=== PATIENT | male | born 1965 | race African-American/Black ===

== ENCOUNTER → 2019-01-30 | Outpatient (CLI) | payer BC ==
[~2019-01-30] VITALS: Ht 175.3 cm; Wt 103.0 kg
[~2019-01-30] MED LIST: CRESTOR20 MG PO; IMDUR 30 MG TAB30 M1 PO; TOPROL XL25 MG PO
[2019-01-30 10:46] VITALS: BP 134/89
--- NOTE | 2019-01-31 12:51 | EKG ---
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
--- NOTE | 2019-02-07 10:47 | CATHLAB ---
[facility] [address] [place] [address] INVASIVE PROCEDURE REPORT Name: ANNMARIE WARREN Room #: REG ROLAND Bailey#: [id number] Admission: 01/30/19 Attend Phys: Lee Kam Discharge: Date of : 67 Report #: [id number] THIS REPORT FOR: //name// APPROVED REPORT Study performed: 01/30/2019 11:33:52 Patient Details Patient Status: Out-Patient Room #: The patient is a 53 year-old male Event Personnel Lee Cash Christian Science Practitioner, Maggy Sutton RN, Jessica Ruiz RTR Scrub, Carlos Crystal RTR Scrub, Sathish Bronson Monitor Procedures Performed Left Heart Cath w/or w/o Coronaries [id number] [facility], supervision of conscious sedation Indication Positive stress test, Chest pain Procedure Narrative The Right Groin^ was infiltrated with 1% Lidocaine subcutaneous anesthesia. A PINNACLE 4FR Sheath #[id number] sheath was inserted into the RFA^. Coronary angiography was performed using coronary diagnostic catheters. The right coronary system was accessed and visualized with a JR4 catheter. The left coronary system was accessed and visualized with a JL4 catheter. The left ventricle was accessed and visualized with a PIGTAIL catheter. Left ventricular/Aortic Valve gradient assessed via catheter pullback. The patient tolerated the procedure well and there were no complications associated with the procedure. There was no hematoma. Intraoperative Conscious Sedation Sedation start time: 11.53 Case end Time: 12.25 Versed 2 mg Fluoro Time: 7.00 minutes Dose: DAP 9605.00 cGycm2 1634 mGy Contrast Type and Amount: Omnipaque 70 ml Coronary Angiography [facility] [address] [place] [address] INVASIVE PROCEDURE REPORT Name: ANNMARIE WARREN Room #: REG CL [facility]#: [id number] Admission: 01/30/19 Attend Phys: Lee Kam Discharge: Date of : 67 Report #: [id number] The patient's coronary anatomy is right dominant. Diagnostic Cath Left Main Normal origin and moderate to large caliber bifurcates left anterior descending left circumflex free of high-grade disease LAD Moderate caliber type III vessel which proceeds in the AV groove giving rise to diagonal and septal branches. The first diagonal branch has a high-grade proximal lesion that is subtotally occluded. The vessel appears to be less than half a millimeter in diameter. The LAD proper then continues on tapering towards the apex and in the midportion of the LAD there is a eccentric 70+ percent stenosis. Beyond this in the distal third there are 2 sequential lesions that appear to be 60-70 and 70-80 respectively. There is no apparent reduced flow. Diagonal 1 Very small-caliber vessel which is subtotally occluded in the proximal third and then continues on to his anterolateral wall with diffuse high-grade disease Circumflex Moderate caliber vessel which initially gives rise to a marginal branch that has a 75% in-stent restenosis. The vessel then continues on with diffuse disease in the distal have to third of the vessel with subtotal occlusions and high-grade lesions noted. The cervical investing continues on his rise to a second small insignificant caliber marginal branch which is subtotally occluded in the proximal portion. The circumflex then continues posteriorly in the AV groove terminating small possible branches prior to subtotal lesions of these branches. OM1 Moderate to small caliber vessel with in-stent restenosis of greater than 75%. It then continues on with diffuse disease. Right Coronary Arch caliber dominant vessel which proceeds in the AV groove. He has mild to moderate irregularities in its proximal and midportion. Prior to the crux of the heart there is segment of sequential 30-50% lesions in the PDA arises it rapidly tapers from a proximal ectatic region to a small R PDA Large caliber vessel proximally large ectatic vessel then rapidly tapers to less than have him millimeter in diameter with moderate diffuse disease Left Ventriculography Left Ventriculography was not performed. Hemodynamics The aortic pressure is 127/85 mmHg with a mean of 103 mmHg. The left ventricular pressure is 134/8 mmHg with a mean of mmHg. The left ventricular end diastolic pressure is 23 mmHg. [facility] [address] [place] [address] INVASIVE PROCEDURE REPORT Name: ANNMARIE WARREN Room #: REG ROLAND Bailey#: [id number] Admission: 01/30/19 Attend Phys: Lee Kam Discharge: Date of : 67 Report #: [id number] Conclusion 1. Coronary artery disease multivessel diffuse moderate to high-grade 2. Abnormal hemodynamics elevated left ventricular end-diastolic pressures Recommendations Cardiac Risk Reduction Program Aggressive Medical Therapy 1. With discuss with patient the extent of his diffuse disease and the inability to completely revascularize all of his lesions. Options of selective percutaneous revascularization in addition to medical management will be discussed. In view of the mid and distal disease that's moderate and high-grade surgical revascularization likely not to produce adequate long-term benefits but we'll have surgery evaluate and obtain their opinion. <ELECTRONICALLY SIGNED> By: Lee Cash MD 02/07/19 1047 1047 1047 Lee Cash MD /INF
== END | disposition home or self-care (01) ==
LOC: CAT 10:11
DX: R07.9 Chest pain, unspecified (principal); I25.10 Atherosclerotic heart disease of native coronary artery without angina pectoris; I50.1 Left ventricular failure, unspecified; E78.5 Hyperlipidemia, unspecified; I25.2 Old myocardial infarction; Z98.890 Other specified postprocedural states; Z79.899 Other long term (current) drug therapy

== ENCOUNTER 2019-04-12 21:45 | Inpatient (IN) | payer BC ==
[~2019-04-12] VITALS: Ht 175.3 cm; Wt 103.9 kg
[2019-04-12 21:49] VITALS: BP 158/91
[2019-04-12 22:06] LABS: ABSOLUTE NEUTROPHILS 3.5 thou/uL (1.4-8.2); BASOPHILS 0.6 % (0.0-2.0); EOSINOPHILS 1.4 % (0.0-3.0); HEMATOCRIT 41.8 % (42.0-52.0); HEMOGLOBIN 13.5 gm/dL (14.0-18.0); LYMPHOCYTES 31.2 % (24.0-44.0); MCH 26.9 pg (26.0-34.0); MCHC 32.3 g/dL (28.0-37.0); MCV 83.2 fL (80.0-100.0); MONOCYTES 10.1 % (1.0-8.0); PLATELET COUNT 191 thou/uL (150-400); POLYS 56.7 % (36.0-66.0); RBC 5.03 mil/uL (4.50-6.00); RDW 14.4 % (10.5-14.5); WBC 6.1 thou/uL (4.0-11.0)
[2019-04-12 22:23] LABS: ANION GAP 6 mmol/L (7-16); BUN 12 mg/dL (7-18); CALCIUM 8.9 mg/dL (8.5-10.1); CHLORIDE 104 mmol/L (98-107); CO2 30 mmol/L (21-32); CREATININE 1.1 mg/dL (0.7-1.3); GLUCOSE 119 mg/dL (74-106); POTASSIUM 3.8 mmol/L (3.5-5.1); SODIUM 140 mmol/L (136-145)
[2019-04-12 22:32] LABS: TROPONIN-I <0.06 ng/mL (<0.06)
[2019-04-12 23:57] VITALS: BP 132/80
[2019-04-13] VITALS (15 sets, daily range): BP systolic 106–147; BP diastolic 60–88
[2019-04-13] MEDS ORDERED: REPATHA SY140 MG/1 M SQ (00:43)
[2019-04-13 05:22] LABS: CHOLESTEROL 151 mg/dL (<200); HDL CHOLESTEROL 44 mg/dL (>40); LDL CHOLESTEROL 99 mg/dL (<100); TC:HDL 3.4 Ratio (Not establshd); TRIGLYCERIDE 40 mg/dL (<150); VLDL 8 mg/dL (<40)
[2019-04-13 05:23] LABS: SERUM ASSESSMENT Clear
--- NOTE | 2019-04-13 05:29 | NUR ---
[facility] 0015. PT/VITALS STABLE. ACCOMPANIED TO UNIT BT ED STAFF AND SPOUSE. A/O X 4. PATIENT DENEIS ANY CHEST PAIN. NO OTHER DISTRESS NOTED. GOOD TOLERANCE TO ACTIVITY. UP AD SHERLYN. TROPONIN INCREASING BUT NOT CRITICAL. PT HAS CARDIAC HISTORY OF UT AND STENTS. SR/SB ON MONITOR. CARDIOLOGY CONSULTED. PLAN IS TO CONTINUE TO MONITOR HEART FUNCTION. WILL CONTINUE TO FOLLOW WIHT POC
--- NOTE | 2019-04-13 09:44 | EKG ---
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 : 1965 Requested By: Patrick Valente Order Number: [id number] MD: Isaiah Del Toro Measurements Intervals [place] Rate: 78 P: 69 KS: 181 QRS: 34 QRSD: 85 T: 3 QT: 361 QTc: 412 Interpretive Statements Sinus rhythm Possible Inferior infarct, old Baseline wander in lead(s) V2 Compared to ECG 01/30/2019 10:32:30 No significant change was found Electronically Signed On 04-13-2019 9:43:52 CORPORATE LOGISTICS MANAGER by Isaiah Del Toro [email or web address] <ELECTRONICALLY SIGNED> By: Isaiah Del Toro MD, [facility] 04/13/19 0943 48 48 Isaiah Del Toro MD, [facility] /EPI
--- NOTE | 2019-04-13 09:45 | EKG ---
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 : 1965 Requested By: Teresa Lovelace Order Number: [id number] MD: Isaiah Del Toro Measurements Intervals [place] Rate: 57 P: 63 VT: 173 QRS: 24 QRSD: 83 T: 7 QT: 411 QTc: 401 Interpretive Statements Sinus bradycardia Inferior infarct, old Compared to ECG 01/30/2019 10:32:30 No significant changes Electronically Signed On 04-13-2019 9:44:42 BACK PADDER by Isaiah Del Toro [email or web address] <ELECTRONICALLY SIGNED> By: Isaiah Del Toro MD, [facility] 04/13/19 0944 0759 0759 Isaiah Del Toro MD, [facility] /EPI
--- NOTE | 2019-04-13 13:33 | NUR ---
pt left for cath at 1025, returned 12:20, brought by NATHEN Orellana, groin checked, right groin mynx intact, dressing clean and dry, no hematoma palpated, VSS, head of bed at 30 degrees, taking sips of water, no choking or aspiration noted. at side. will monitor
--- NOTE | 2019-04-13 19:00 | CATHLAB ---
[facility] [address] [place] [address] INVASIVE PROCEDURE REPORT Name: ANNMARIE WARREN Room #: 219-P ADM IN M.R.#: [id number] Admission: 04/12/19 Attend Phys: Jaime Graham MD Discharge: Date of : 67 Report #: [id number] THIS REPORT FOR: //name// APPROVED REPORT Study performed: 04/13/2019 10:10:17 Patient Details Patient Status: In-Patient Room #: 219 The patient is a 53 year-old male Event Personnel German Albrecht Bed Manager, Vandana Camejo RTR, INSTANT POTATO PROCESSOR Monitor, Al Barajas RN, Brian Armstrong RT(R)(CV) Scrub Procedures Performed Art Access - R femoral artery* Left Heart Cath w/or w/o Coronaries [id number] [facility] [address] Place w/wo Plasty Single LAD 744948 Hemostasis w/ Mynx 77033 Initial Mod Sed Same Phys/QHP Gr5y 562955 08448 Mod Sed Same Phys/QHP Ea 105020 Indication Non-STEMI , Dyspnea, Chest pain, The patient had a recent cardiac catheterization 1-2 months ago, found to have severe multivessel disease. He has severe occlusions in the distal vessels, not a suitable candidate for bypass surgery. It was decided to pursue a strategy of medical therapy. He was started on long-acting nitrates and beta doug therapy. The patient reports having increasing angina for the past several weeks. Occurring with lesser amounts of exertion. Before admission, he had severe symptoms at rest. Risk Factors Hypercholesterolemia, Coronary Artery DiseaseHypertension Procedure Narrative The Right Groin^ was infiltrated with 1% Lidocaine subcutaneous anesthesia. A PINNACLE 6FR Sheath #[id number] sheath was inserted into the RFA^. Coronary angiography was performed using coronary diagnostic catheters. The right coronary system was accessed and visualized with a JR4 catheter. The left coronary system was accessed and visualized with a VISTA 6FR XB 3.5 #[id number] catheter. The left ventricle was accessed and visualized with a JR4 catheter. Left ventricular/Aortic Valve gradient assessed via catheter pullback. Pre-demployment femoral angiogram was performed . Closure device was deployed with a 6 Fr MYNXGRIP 6/7F #[id number]. The patient tolerated the [address] [address] INVASIVE PROCEDURE REPORT Name: ANNMARIE WARREN Room #: 219-P [facility] IN [facility]#: [id number] Admission: 04/12/19 Attend Phys: Jaime Graham MD Discharge: Date of : 67 Report #: [id number] procedure well and there were no complications associated with the procedure. There was no hematoma. Intraoperative Conscious Sedation Sedation start time: 10:48 Case end Time: 12:02 Fentanyl 100 mcg Versed 2 mg Fluoro Time: 21.42 minutes Dose: DAP 31416.00 cGycm2 4061 mGy Contrast Type and Amount: Omnipaque 350-330ml Coronary Angiography The patient's coronary anatomy is co- dominant. Diagnostic Cath Left Main This is a large caliber vessel, patent with no flow-limiting lesions. LAD There is a severe occlusion in the mid segment, 90%. There are multiple severe occlusions in the distal segment just before the apex. Diagonal 1 There is a subtotal occlusion in the proximal segment. After this segment, the vessel tapers down to a small to moderate size caliber vessel, with moderately severe diffuse disease. Circumflex This is a codominant vessel, supplies 3 OM vessels. OM1 There is a stent in the proximal segment with severe restenosis, 70%. There is severe diffuse disease in the distal segment. OM2 There is a subtotal occlusion, filling a small to moderate size caliber vessel. This is unchanged from the previous cardiac catheterization. Medical therapy is recommended. OM3 There is a subtotal occlusion, filling a small to moderate size caliber vessel. This is unchanged from the previous cardiac catheterization. Medical therapy is recommended. Right Coronary There is mild diffuse disease in the mid segment. R PDA The mid segment tapers down to small size caliber with a moderate stenosis. Left Ventriculography Left Ventriculography was not performed. An LVEDP was measured and there is no gradient across the outflow tract. Hemodynamics The aortic pressure is 148/67 mmHg with a mean of [address] [facility] [address] [place] [address] INVASIVE PROCEDURE REPORT Name: ANNMARIE WARREN Room #: 219-P ADM IN M.R.#: [id number] Admission: 04/12/19 Attend Phys: Jaime Graham MD Discharge: Date of : 67 Report #: [id number] ventricular pressure is 134/7 mmHg with a mean of mmHg. The left ventricular end diastolic pressure is 24 mmHg. PCI Technique Lesion Percutaneous coronary intervention was performed on the mid left anterior descending artery segment. The lesion stenosis prior to intervention was 90% with DEVON 3 flow. A VISTA 6FR XB 3.5 #550324 Guide Catheter was used to engage the ostium. A Luge Wire .014 x 182CM #[id number] Interventional Guidewire was used to cross the lesion. BALLOON DILATION A Balloon catheter Euphora RX 2.5 x 12 #[id number] was inserted and inflated up to 8.00atm for 7seconds. Additional Inflation: 14.00atm for 17seconds. STENT DEPLOYMENT A drug-eluting stent RESOLUTE GUS RX 3.0 X 15 #[id number] was inserted and inflated up to 12.00atm for 16seconds. POST STENT DEPLOYMENT BALLOON DILATION A Balloon catheter TREK NC RX 3.0 X 12 #[id number] was inserted and inflated up to 18.00atm for 20seconds. Additional Inflation: 14.00atm for 16seconds. Final angiography reveals 0 % stenosis with DEVON 3 flow. PCI Technique Lesion 2 Percutaneous Coronary Intervention was performed on the distal left anterior descending artery segment. The lesion stenosis prior to intervention was 90% with DEVON 3 flow. A VISTA 6FR XB 3.5 #456608 Guide Catheter was used to engage the ostium. A Luge Wire .014 x 182CM #997959 Interventional Guidewire was used to cross the lesion. Balloon Dilation A Balloon catheter Euphora RX 2.5 x 12 #[id number] was inserted and inflated up to 12.00atm for 16seconds. Additional Inflation: 14.00atm for 15seconds. Stent Deployment A drug-eluting stent RESOLUTE GUS RX 2.75 X 26 #[id number] was inserted and inflated up to 16.00atm for 19seconds. Post Stent Deployment Balloon Dilation A Balloon catheter TREK NC RX 2.75 X 12 #[id number] was inserted and [facility] [address] [place] [address] INVASIVE PROCEDURE REPORT Name: ANNMARIE WARREN Room #: 219-P ADM IN M.R.#: [id number] Admission: 04/12/19 Attend Phys: Jaime Graham MD Discharge: Date of : 67 Report #: [id number] inflated up to 18.00atm for 11seconds. Additional Inflation: 18.00atm for 13seconds. Final angiography reveals 0 % stenosis with DEVON 3 flow. PCI Technique Lesion 3 Percutaneous Coronary Intervention was performed on the first diagnonal branch segment (Proximal). The lesion stenosis prior to intervention was 99% with DEVON 2 flow. A VISTA 6FR XB 3.5 #283586 Guide Catheter was used to engage the ostium. A Whisper Wire .014 x 190 #766909 Interventional Guidewire was used to cross the lesion. Balloon Dilation A Balloon catheter Euphora RX 1.5 x 12 #[id number] was inserted and inflated up to 12.00atm for 20seconds. A balloon catheter Euphora 2.0 x 12 was inserted and inflated up to 12 triston for 23 seconds in the proximal Diagonal. Stent Deployment A drug-eluting stent RESOLUTE GUS RX 2.75 X15 #[id number] was inserted and inflated up to 10.00atm for 17seconds. Post Stent Deployment Balloon Dilation A Balloon catheter TREK NC RX 2.75 X 12 #[id number] was inserted and inflated up to 14.00atm for 18seconds. Final angiography reveals 5 % stenosis with DEVON 3 flow. PCI Technique Lesion 4 Percutaneous Coronary Intervention was performed on the first diagonal branch segment (Mid). A VISTA 6FR XB 3.5 #478492 Guide Catheter was used to engage the ostium. A Whisper Wire .014 x 190 #[id number] Interventional Guidewire was used to cross the lesion. Balloon Dilation A Balloon catheter Euphora RX 2.0 x12 #[id number] was inserted and inflated up to 6atm for 15seconds. Additional Inflation: 8atm for 21seconds. Conclusion 1. Severe multivessel disease, with involvement of the distal segments. Failed a strategy of medical therapy. 2. Successful insertion of a drug-eluting stent into the mid and distal segment of the LAD. [facility] [address] [place] [address] INVASIVE PROCEDURE REPORT Name: ANNMARIE WARREN Room #: 219-P [facility] IN ..#: [id number] Admission: 04/12/19 Attend Phys: Jaime Graham MD Discharge: Date of : 67 Report #: [id number] 3. Successful insertion of a drug-eluting stent into the proximal first diagonal artery. 4. Severe disease in the OM vessels, recommend medical therapy. 5. Recommend dual antiplatelet therapy and aggressive risk factor management. <ELECTRONICALLY SIGNED> By: German Albrecht MD 04/13/191858 58 58 German Albrecht MD /INF
[2019-04-14 01:38] VITALS: BP 130/68
[2019-04-14 04:28] LABS: HEMATOCRIT 40.7 % (42.0-52.0); HEMOGLOBIN 13.2 gm/dL (14.0-18.0); MCH 26.9 pg (26.0-34.0); MCHC 32.4 g/dL (28.0-37.0); MCV 82.9 fL (80.0-100.0); RBC 4.92 mil/uL (4.50-6.00); RDW 14.3 % (10.5-14.5); WBC 5.7 thou/uL (4.0-11.0)
[2019-04-14 04:45] VITALS: BP 126/65
[2019-04-14 04:46] LABS: ALBUMIN 3.3 g/dL (3.4-5.0); CALCIUM 8.7 mg/dL (8.5-10.1); CREATININE 1.1 mg/dL (0.7-1.3); POTASSIUM 3.9 mmol/L (3.5-5.1); TOTAL BILIRUBIN 0.4 mg/dL (<0.1-1.0); TOTAL PROTEIN 7.6 g/dL (6.4-8.2)
--- NOTE | 2019-04-14 05:21 | NUR ---
ASSUMED PT CARE AT 1900. VSS. PT A&0X4, ASSESSMENTS ARE CHARTED. PT COMPLAINED OF SLIGHT TENDERNES AT R GROIN SITE UPON PALPATION. SITE ITSELF IS CDI, SOFT, NO BRUISING OR HEMATOMA. PT SLEPT THROUGH THE NIGHT. PT IS STABLE, SR ON THE MONITOR, STABLE AND STRONG ON HIS FEET TOO. NO COMPLAINTS OF PAIN, SHOULD D/C THIS AM.
--- NOTE | 2019-04-14 08:31 | HC ---
[facility] [place] [address] CONSULTATION Name: ANNMARIE WARREN Room #: 219-P ADM IN M.R.#: [id number] Admission: 04/12/19 Attend Phys: Jaime Graham MD Discharge: Date of : 67 Report #: [id number] THIS REPORT FOR: //name// CC: Jaime Carrasco DATE OF SERVICE: 04/13/2019 INDICATION: Chest pain. HISTORY OF PRESENT ILLNESS: This is a 53-year-old gentleman with a history of SC, PCI, CAD, hypertension and hypercholesterolemia, presenting with chest pain. He has a remote history of stent placement to the first obtuse marginal artery approximately 8 years ago. Over the past several months, he has been experiencing chest pain with exertion. He underwent a cardiac catheterization about 1-1/[address] Cash. He was found to have multivessel disease. The LAD had multiple severe occlusions in the mid and distal segments. The first diagonal artery has severe diffuse disease. The first OM has a stent restenosis; however, the distal vessel has severe diffuse disease. The RCA supplies a small PDA without any significant occlusions. Given the extent of his disease, surgery was not an option. Medical therapy was initiated with long-acting nitrates. The patient reports that over the past few days, he has had a progression of symptoms; now developing chest pain with just walking in the hallways at home. He came into the hospital because he had prolonged episode of pain at rest. He denies any fever, shortness of breath or diaphoresis. PAST MEDICAL HISTORY: 1. History of SC with prior stent placement. Recent cardiac catheterization revealed severe multivessel disease. Has distal lesions, not amenable to bypass surgery. 2. Hypercholesterolemia. 3. Hypertension. ALLERGIES: Include MORPHINE. MEDICATIONS AT HOME: Include Crestor 20 mg daily, Repatha injections every 2 weeks, Toprol-XL 25 mg, aspirin once a day and Imdur 30 mg daily. SOCIAL HISTORY: Denies tobacco use. FAMILY HISTORY: Negative for premature CAD. REVIEW OF SYSTEMS: A full 10-point review of systems performed. Only the pertinent positives and negatives are described in the HPI. [address] [address] CONSULTATION Name: ANNMARIE WARREN Room #: 219-P [facility] IN M.R.#: [id number] Admission: 04/12/19 Attend Phys: Jaime Graham MD Discharge: Date of : 67 Report #: [id number] PHYSICAL EXAMINATION: VITAL SIGNS: Blood pressure is 130/80, heart rate is 60 beats per minute. GENERAL APPEARANCE: This is a well-developed, well-nourished male in no acute distress. HEENT: Normocephalic, atraumatic. Oral mucosa moist. NECK: Supple. LUNGS: Clear to auscultation. CARDIAC: Regular rate and rhythm, S1, S2 positive. ABDOMEN: Soft, nontender. EXTREMITIES: No cyanosis, no edema. IMAGING: ECG reveals sinus rhythm, Q-waves inferiorly. LABORATORY VALUES: Troponin 0.17. LDL is 99. Hemoglobin is 13.5. Creatinine is 1.1. ASSESSMENT AND PLAN: 1. Non-ST elevation myocardial infarction, known to have significant coronary artery disease. I discussed with the patient the risks and benefits of cardiac catheterization and angioplasty. He voices understanding and wishes to proceed. He will be started on Effient along with aspirin. 2. Hypercholesterolemia, continue with statin therapy. He receives for Repatha injections every 2 weeks. 3. Hypertension, continue with the beta doug. <ELECTRONICALLY SIGNED> By: German Albrecht MD 04/14/19 0831 0958 0107 German Albrecht MD /nt
[2019-04-14 08:38] VITALS: BP 142/76
[2019-04-14] MEDS ORDERED: EFFIENT10 MG PO (09:32)
[2019-04-14] MEDS ORDERED: ASPIRIN325 PO (09:32)
--- NOTE | 2019-04-14 10:10 | NUR ---
ASSUMED CARE OF PT APPROX 0715, A&0X4, SPOUSE AT BEDSIDE, BOTH IN GOOD SPIRITS. GAVE EDUCATION/REMINDER ON PROCESS OF DISCHARGE, GOT JUICE AND SNACKS. SEE SEPARATE INTERVENTIONS FOR ASSESSMENTS. C/O GENERALIZED ALL OVER ACHINESS 'FROM THE HOSPITAL BEDS'. CARDIAC MONITORED, IV AND TELE REMOVED, ALL BELONGINGS W/PT, WILL BE WHEELED OUT VIA W/C TO MED MALL WITH SPOUSE. ALL PAPERS SIGNED AND MED INFO SHEETS GIVEN AND QUESTIONS ANSWERED. AN APPT FOR CARDIOLOGY WAS MADE AND CHANGED IN THE ROOM, PT KNOWS TIME/DATE PER CONVERSATION ON PHONE WITH CARDIOLOGY OFFICE
[2019-04-14 10:12] VITALS: BP 142/76
--- NOTE | 2019-04-14 10:28 | EKG ---
[address] [place] [address] ELECTROCARDIOGRAM REPORT Name: ANNMARIE WARREN Room #: 219-P ADM IN M.R.#: [id number] Admission: 04/12/19 Attend Phys: Jaime Graham MD Discharge: Date of : 67 Report #: [id number] THIS REPORT FOR: //name// [facility] Test Date: 2019-04-13 Test Time: 12:35:28 Pat Name: ANNMARIE WARREN Department: Room: 219 P Gender: M Md Physician Dermatologist: LOU : 1965 Requested By: German Albrecht Order Number: [id number] MD: German Albrecht Measurements Intervals [place] Rate: 59 P: 73 NM: 182 QRS: 44 QRSD: 78 T: -3 QT: 384 QTc: 381 Interpretive Statements Sinus rhythm Probable left atrial enlargement Nonspecific ST segment abnormalities Compared to ECG 04/13/2019 07:59:48 ST (T wave) deviation now present Sinus bradycardia no longer present Electronically Signed On 04-14-2019 10:28:16 HISTOLOGY ASSISTANT by German Albrecht [email or web address] <ELECTRONICALLY SIGNED> By: German Albrecht MD 04/14/19 1028 1235 1235 German Albrecht MD /DUANE
--- NOTE | 2019-04-14 10:31 | EKG ---
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 CORLEY : 1965 Requested By: German Albrecht Order Number: [id number] MD: German Albrecht Measurements Intervals [place] Rate: 63 P: 69 GA: 160 QRS: 39 QRSD: 82 T: -4 QT: 368 QTc: 377 Interpretive Statements Sinus rhythm Ventricular premature complex Nonspecific ST segment abnormalities Compared to ECG 04/13/2019 07:59:48 Ventricular premature complex(es) now present ST (T wave) deviation now present Sinus bradycardia no longer present Electronically Signed On 04-14-2019 10:30:56 [employer] MOTTLE by German Albrecht [email or web address] <ELECTRONICALLY SIGNED> By: German Albrecht MD 04/14/19 1030 [id number] German Albrecht MD /DUANE
== END 2019-04-14 11:00 | disposition home or self-care (01) | DRG 247 ==
LOC: ER 21:45 → EROBS 23:38 → 2N 04-13 00:13
PROVIDERS: Emergency Medicine; Internal Medicine Cardiovascular Disease; Nurse Practitioner Acute Care; ADMIT Hospitalist
PROC: 4A023N7 Measurement of Cardiac Sampling and Pressure, Left Heart, Percutaneous Approach (ICD-10-PCS; principal; 2019-04-13)
PROC: B41F1ZZ Fluoroscopy of Right Lower Extremity Arteries using Low Osmolar Contrast (ICD-10-PCS; principal; 2019-04-13)
PROC: B2111ZZ Fluoroscopy of Multiple Coronary Arteries using Low Osmolar Contrast (ICD-10-PCS; principal; 2019-04-13)
PROC: 027136Z Dilation of Coronary Artery, Two Arteries with Three Drug-eluting Intraluminal Devices, Percutaneous Approach (ICD-10-PCS; principal; 2019-04-13)
DX: I21.4 Non-ST elevation (NSTEMI) myocardial infarction (principal); E78.5 Hyperlipidemia, unspecified; I10 Essential (primary) hypertension; E78.00 Pure hypercholesterolemia, unspecified; I25.110 Atherosclerotic heart disease of native coronary artery with unstable angina pectoris; I25.2 Old myocardial infarction; Z79.899 Other long term (current) drug therapy; Z95.5 Presence of coronary angioplasty implant and graft; Z88.6 Allergy status to analgesic agent; Z82.49 Family history of ischemic heart disease and other diseases of the circulatory system
CPT/HCPCS: 10081

== ENCOUNTER → 2020-05-11 | Outpatient (CLI) | payer BC ==
[~2020-05-11] MED LIST changes: +ASPIRIN325 PO; +EFFIENT10 MG PO; +REPATHA SY140 MG/1 M SQ
== END ==
LOC: SJCVCIMAG 09:28
PROVIDERS: ATTEND Internal Medicine Cardiovascular Disease
DX: I08.0 Rheumatic disorders of both mitral and aortic valves (principal); I25.10 Atherosclerotic heart disease of native coronary artery without angina pectoris; I10 Essential (primary) hypertension